=== PATIENT | female | born 1940 | race African-American/Black ===

== ENCOUNTER 2016-09-07 08:51 | Emergency (ER) | payer OTHER ==
[2016-09-07] MEDS ORDERED: KETOROLAC TROMETHAMINE 60 MG/2 ML VIAL IM ONE (09:21)
--- NOTE | 2016-09-07 09:23 | ED Physician Documentation ---
Low Back Pain - HISTORIAN Historian: patient (76 year old female patient presents with lower back pain, concerned she may have a UTI. States she has been lifting her who is in the senior care. ) - HPI Stated Complaint: Back Pain Chief Complaint: Low Back Pain/ Injury Onset: days ago Duration: continues in ED Context: lifting Severity: moderate Worsened By:: nothing Relieved By: nothing Further Comments: yes (76 year old female patient presents with complaint of left lower back pain, states she has been lifting her who is in the senior care. Concerned she may have a UTI.) - ROS CONST: no problems CVS/RESP: none EYES/ENT: none MS/SKIN/LYMPH: none Neuro/Psych: none GI/: denies: abdominal pain - PAST HX Past History: arthritis Other History: diabetes Type 2, hypertension Surgeries/Procedures: cholecystectomy Allergies/Adverse Reactions: Allergies Allergy/AdvReac Type Severity Reaction Status Date / Time Penicillins Allergy Rash Verified 09/07/16 09:03 Home Medications: Ambulatory Orders Medication Instructions Recorded Allopurinol [Allopurinol] 100 mg PO TID 08/23/15 Aspirin [Adult Low Dose Aspirin EC] 81 mg PO QDAY 08/23/15 Atorvastatin Calcium 10 mg PO QDAY 08/23/15 Cholecalciferol [Vitamin D-3] 2,000 unit PO DAILY 08/23/15 Citalopram Hydrobromide 20 mg PO QDAY 08/23/15 [Citalopram HBr] Glimepiride [Glimepiride] 4 mg PO QDAY 08/23/15 Lisinopril [Prinivil] 20 mg PO QDAY 08/23/15 Metoprolol Tartrate [Lopressor] 25 mg PO BID 08/23/15 Ketorolac Tromethamine [Toradol] 10 mg PO TID #15 tablet 09/07/16 - SOCIAL HX Smoking History: non-smoker - FAMILY HX Family History: denies: none - VITAL SIGNS Vital Signs: Vital Signs Temp Pulse Resp BP Pulse Ox 97.1 F L 82 18 178/68 99 09/07/16 08:51 09/07/16 09:32 09/07/16 09:32 09/07/16 09:32 09/07/16 09:32 - REVIEWED ASSESSMENTS Nursing Assessment Reviewed: Yes Vitals Reviewed: Yes ED Results Lab/Radiology - Orders Orders: ED Orders Category Date Time Status UA W/MICRO IF INDICATED Stat Lab 09/07/16 09:01 Ordered Ketorolac Tromethamine [Toradol] Med 09/07/16 09:21 Discontinued 30 mg IM NOW ONE Low Back Pain/Injury - Physical Exam General Appearance: mild distress EENT: eye inspection normal, ROCIO Resp/CVS: chest non-tender, breath sounds nml, heart sounds nml, no resp. distress, lungs clear, reg. rate & rhythm Abdomen: non-tender, no organomegaly, no pulsatile mass Back: painless ROM, other (left lower back with tenderness in para-spinous muscles. ). No: vertebral point-tendernes Straight Leg Raising: Negative Left, Negative Right Neuro/Psych: oriented x3, motor nml, sensation nml, bilat. 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 You may use Tylenol every 4hour as needed for pain. Limit your dose to less than 4 G per day. 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 Home Medications: Ambulatory Orders Allopurinol [Allopurinol] 100 mg PO TID 08/23/15 Aspirin [Adult Low Dose Aspirin EC] 81 mg PO QDAY 08/23/15 Atorvastatin Calcium 10 mg PO QDAY 08/23/15 Cholecalciferol [Vitamin D-3] 2,000 unit PO DAILY 08/23/15 Citalopram Hydrobromide [Citalopram HBr] 20 mg PO QDAY 08/23/15 Glimepiride [Glimepiride] 4 mg PO QDAY 08/23/15 Lisinopril [Prinivil] 20 mg PO QDAY 08/23/15 Metoprolol Tartrate [Lopressor] 25 mg PO BID 08/23/15 Ketorolac Tromethamine [Toradol] 10 mg PO TID #15 tablet 09/07/16 Condition: Stable Disposition: 01 HOME, SELF-CARE Decision to Admit: NO Decision Time: 09:23
[2016-09-07 09:34] VITALS: BP 178/68
[2016-09-08 06:59] LABS: APPEARANCE,URINE CLEAR (CLEAR); COLOR,URINE YELLOW (YELLOW); OCCULT BLOOD,URINE NEGATIVE (NEGATIVE); PH URINE 5.5 (5.0 - 8.0); UROBILINOGEN URINE 0.2 Eu (0.2-1.0)
== END 2016-09-07 09:32 | disposition home or self-care (01) ==
LOC: ED 08:51
DX: M54.5 Low back pain (principal)
CPT/HCPCS: 81002; J1885; 96372; 99283

== ENCOUNTER 2017-09-08 09:38 | Outpatient (CLI) | payer OTHER ==
--- NOTE | 2017-09-08 10:11 | Diagnostic Imaging Report ---
[facility] [address] [facility].[address] 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 KNEE REPLACEMENT 4-5 YEARS AGO. (Hx) / ACUTE PAIN OF RIGHT KNEE (DICOM Hx) / ACUTE PAIN OF RIGHT KNEE (Pt comments) Findings: 3 views of the right knee demonstrates knee prosthesis hardware in place. No fracture. No dislocation. Small joint effusion. No soft tissue irregularity. Impression: Knee prosthesis hardware in place. Small joint effusion. No acute appearing osseous abnormality. Electronically signed on Sep 08, 2017 10:07:32 AM CUSTOMER ACCOUNT SPECIALIST by: Tony LINK
== END 2017-09-08 09:40 ==
LOC: RAD 09:38
PROVIDERS: ATTEND Family Medicine
DX: M25.561 Pain in right knee (principal)
CPT/HCPCS: 73562

== ENCOUNTER 2017-11-12 10:23 | Outpatient (CLI) | payer OTHER ==
[2017-11-12 10:53] LABS: MEAN CORPUSCULAR HEMOGLOBIN 25.1 pg (28.0-34.0)
[2017-11-12 11:20] LABS: eGFR (African) 43; eGFR (Non-African) 36
== END 2017-11-12 10:25 ==
LOC: LAB 10:23
PROVIDERS: ATTEND Family Medicine
DX: E11.29 Type 2 diabetes mellitus with other diabetic kidney complication (principal); R80.9 Proteinuria, unspecified
CPT/HCPCS: 36415; 80053; 80061; 83036; 85027

== ENCOUNTER 2018-03-07 20:35 | Emergency (ER) | payer OTHER ==
--- NOTE | 2018-03-07 21:47 | ED Physician Documentation ---
General Adult - HISTORIAN Historian: patient - HPI Stated Complaint: left low back pain Chief Complaint: General Adult Additional Information: Left low back pain began last evening when she jumped up because her new great grand daughter awoke crying. Has been taking two Aleve twice a day w/o relief. Denies numbness, tingling, loss of bowel/bladder control, paralysis, weakness. Denies urinary frequency, dysuria, abdominal discomfort. No other modifying factors or associated signs. - ROS CONST: denies: fever - PAST HX Past History: other (UTI's) Allergies/Adverse Reactions: Allergies Allergy/AdvReac Type Severity Reaction Status Date / Time Penicillins Allergy Rash Verified 03/07/18 20:48 Home Medications: Ambulatory Orders Medication Instructions Recorded Allopurinol 100 mg PO TID 08/23/15 Aspirin [Adult Low Dose Aspirin EC] 81 mg PO QDAY 08/23/15 Atorvastatin Calcium 10 mg PO QDAY 08/23/15 Cholecalciferol [Vitamin D-3] 2,000 unit PO DAILY 08/23/15 Lisinopril [Prinivil] 20 mg PO QDAY 08/23/15 Metoprolol Tartrate [Lopressor] 25 mg PO BID 08/23/15 Cyclobenzaprine HCl [Flexeril] 10 mg PO HS #7 tablet 03/07/18 Nitrofurantoin Monohyd/M-Cryst 100 mg PO Q12H #14 capsule 03/07/18 [Macrobid 100 mg Capsule] traMADol HCL [Ultram] 50 mg PO Q6H PRN #10 tablet 03/07/18 - SOCIAL HX Smoking History: non-smoker - FAMILY HX Family History: No - VITAL SIGNS Vital Signs: Vital Signs Temp Pulse Resp BP Pulse Ox 98.1 F 78 18 208/64 98 03/07/18 20:35 03/07/18 20:35 03/07/18 20:35 03/07/18 20:35 03/07/18 20:35 - REVIEWED ASSESSMENTS Nursing Assessment Reviewed: Yes Vitals Reviewed: Yes ED Results Lab/Radiology - Orders Orders: ED Orders Category Date Time Status UA [URINALYSIS] Routine Lab 03/07/18 Ordered Cyclobenzaprine HCl [Flexeril] Med 03/07/18 21:41 Once 10 mg PO NOW ONE Nitrofurantoin Monohyd/M-Cryst [Macrobid] Med 03/07/18 21:41 Once 100 mg PO NOW ONE traMADol HCL [Ultram] Med 03/07/18 21:41 Once 50 mg PO NOW ONE General Adult Physical Exam - PHYSICAL EXAM GENERAL APPEARANCE: mild distress (anxious) EENT: eye inspection normal, ENT inspection normal NECK: normal inspection, supple RESPIRATORY: no resp distress, breath sounds normal CVS: reg rate & rhythm, heart sounds normal ABDOMEN: soft, normal bowel sounds, no distension, non-tender BACK: normal inspection, no CVA tenderness, other (no vertebral tenderness, ) SKIN: warm/dry, normal color EXTREMITIES: no evidence of injury NEURO: CN's nml as tested, motor nml, sensation nml, cognition normal Discharge Clincal Impression: Lumbar strain Qualifiers: Encounter type: initial encounter Qualified Code(s): S39.012A - Strain of muscle, fascia and tendon of lower back, initial encounter Urinary tract infection Qualifiers: Urinary tract infection type: acute cystitis Hematuria presence: without hematuria Qualified Code(s): N30.00 - Acute cystitis without hematuria Prescriptions: Cyclobenzaprine HCl [Flexeril] 10 mg PO HS #7 tablet Nitrofurantoin Monohyd/M-Cryst [Macrobid 100 mg Capsule] 100 mg PO Q12H #14 capsule traMADol HCL [Ultram] 50 mg PO Q6H PRN #10 tablet PRN Reason: Pain Referrals: Baljit Andersen MD [Primary Care Provider] - 2 Days Additional Instructions: Drink more water. Your antibiotic and muscle relaxant prescriptions are at [facility]. Continue to take Aleve as you have been. You can also take 1000 mg of Tylenol every 8 hours if needed for discomfort. Ice or gentle heat to the sore area of your back for 30 minutes of each hour you are awake followed by motion and gentle stretching. Follow up with your provider as needed. Return to the ER if your condition worsens. Condition: Good Disposition: 01 HOME, SELF-CARE Decision to Admit: NO Decision Time: 22:20
[2018-03-07] MEDS: NITROFURANTOIN 100 MG CAPSULE PO ONE (22:11)
[2018-03-07] MEDS: traMADol HCL 50 MG TABLET PO ONE (22:15)
[2018-03-07] MEDS: CYCLOBENZAPRINE HCL 5 MG TABLET PO ONE (22:15)
[2018-03-07 22:23] VITALS: BP 193/71
[2018-03-08 07:27] LABS: COLOR,URINE YELLOW (YELLOW)
[2018-03-08 07:28] LABS: APPEARANCE,URINE CLOUDY (CLEAR); OCCULT BLOOD,URINE NEGATIVE (NEGATIVE); PH URINE 5.5 (5.0 - 8.0); UROBILINOGEN URINE 0.2 Eu (0.2-1.0)
== END 2018-03-07 22:24 | disposition home or self-care (01) ==
LOC: ED 20:35
DX: S39.012A Strain of muscle, fascia and tendon of lower back, initial encounter (principal); N30.00 Acute cystitis without hematuria; X58.XXXA Exposure to other specified factors, initial encounter; Y92.9 Unspecified place or not applicable; Y93.9 Activity, unspecified; Y99.9 Unspecified external cause status
CPT/HCPCS: 81002; 87086

== ENCOUNTER 2018-04-17 18:14 | Emergency (ER) | payer OTHER ==
--- NOTE | 2018-04-17 18:35 | ED Physician Documentation ---
General Adult - HISTORIAN Historian: patient - HPI Stated Complaint: R knee pain, malaise Chief Complaint: General Adult Timing: still present Severity: moderate Further Comments: yes (Pt is a 77 yo female with R knee pain who presents with BP 209/92. Pt states she "just doesn't feel well." Knee pain has been going on for 1 year. She had b/l knee replacement surgery. She fell about a year ago and her L knee has been bothering her since. Pt states that her 4 months ago and she is living alone. Pt takes Lisinopril and Metoprolol for bp, but has not taken it yet today.) - ROS CONST: other (malaise) EYES/ENT: none CVS/RESP: none GI/: none MS/SKIN/LYMPH: other (L knee pain) - PAST HX Past History: hypertension, other (GERD, HLD, Gout) Surgeries/Procedures: cholecystectomy, hysterectomy, other (ortho surgery) Allergies/Adverse Reactions: Allergies Allergy/AdvReac Type Severity Reaction Status Date / Time Penicillins Allergy Rash Verified 04/17/18 18:41 Home Medications: Ambulatory Orders Medication Instructions Recorded Allopurinol 100 mg PO TID 08/23/15 Aspirin [Adult Low Dose Aspirin EC] 81 mg PO QDAY 08/23/15 Atorvastatin Calcium 10 mg PO QDAY 08/23/15 Cholecalciferol [Vitamin D-3] 2,000 unit PO DAILY 08/23/15 Lisinopril [Prinivil] 20 mg PO QDAY 08/23/15 Metoprolol Tartrate [Lopressor] 25 mg PO BID 08/23/15 Cyclobenzaprine HCl [Flexeril] 10 mg PO HS #7 tablet 03/07/18 - SOCIAL HX Smoking History: non-smoker - FAMILY HX Family History: No - VITAL SIGNS Vital Signs: Vital Signs Temp Pulse Resp BP Pulse Ox 193/71 03/07/18 22:21 - REVIEWED ASSESSMENTS Nursing Assessment Reviewed: Yes Vitals Reviewed: Yes Progress - Progress Progress: Lisinopril 20 mg po Metoprolol 50 mg po Hydralazine 25 mg po improved u/a 1+ leukoesterase Levaquin 500 mg po in ER Pt drove by herself to ER, [place] (5/325) 2 tablets --> home, 1 po q 6 h. Rx Levaquin 250 mg. Take one by mouth once daily for 7 days. Rx [place] (5/325). Take one every 4 to 6 hours as needed for moderate to severe pain. Follow up with primary provider next week for re-check of blood pressure. General Adult Physical Exam - PHYSICAL EXAM GENERAL APPEARANCE: moderate distress (anxious) EENT: pharynx normal NECK: normal inspection, supple RESPIRATORY: no resp distress, chest non-tender, breath sounds normal CVS: reg rate & rhythm, heart sounds normal ABDOMEN: soft, no organomegaly, normal bowel sounds BACK: normal inspection, no CVA tenderness SKIN: warm/dry, normal color EXTREMITIES: other (L knee, FROM, no effusion or erythema) NEURO: oriented X3, motor nml, sensation nml Discharge Clincal Impression: R knee pain Urinary tract infection Qualifiers: Urinary tract infection type: site unspecified Hematuria presence: without hematuria Qualified Code(s): N39.0 - Urinary tract infection, site not specified Hypertension Qualifiers: Hypertension type: unspecified Qualified Code(s): I10 - Essential (primary) hypertension Referrals: Baljit Andersen MD [Primary Care Provider] - Condition: Stable Disposition: 01 HOME, SELF-CARE Decision to Admit: NO Decision Time: 23:00
[2018-04-17] MEDS ORDERED: METOPROLOL TARTRATE 50 MG TABLET PO ONE (18:49)
[2018-04-17] MEDS ORDERED: LISINOPRIL 20 MG TABLET PO ONE (19:47)
--- NOTE | 2018-04-17 19:51 | Diagnostic Imaging Report ---
SHRUTHI WARE [facility] [address] [facility], [facility] [address] Report Submission Date: Apr 17, 2018 7:17:43 PM CDT Patient Study Name: ARTURO CRAIG Date: Apr 17, 2018 6:46:35 PM CDT Modality Type: DX Gender: F Description: LOWER EXTREMITY : 42 Institution: [facility] Physician: SHRUTHI WARE Right knee 3 views Clinical history: History of fall There is total right knee prosthesis, components appear to be in good position. No acute fractures, dislocation and there is no joint effusion. No signs of loosening of the prosthesis. Impression: Total right knee prosthesis in good position Electronically signed on Apr 17, 2018 7:17:43 PM CDT by: Casper LINK
[2018-04-17] MEDS ORDERED: HYDRALAZINE HCL 25 MG TABLET PO STA ×2 (20:40→21:24)
[2018-04-17 21:51] LABS: BASO % 1.1 % (0.0-1.5); EOS % 2.7 % (0.0-6.8); LYMPH ABS # 1.95 thou/uL (0.60-4.00); MCH. 24.8 pg (28.0-34.0); MCV 79.4 fL (80.0-100.0); MONOCYTE % 3.8 % (0.0-11.0); MONOCYTE ABS # 0.31 thou/uL (0.00-0.90); PLATELET COUNT 289 thou/uL (130-400)
[2018-04-17] MEDS ORDERED: LEVOFLOXACIN 500 MG TABLET PO ONE (22:58)
[2018-04-17] MEDS ORDERED: HYDROcodone /APAP 5/325 1 EACH TABLET PO ONE (23:04)
[2018-04-17 23:47] VITALS: BP 185/85
[2018-04-18 06:43] LABS: APPEARANCE,URINE CLEAR (CLEAR); COLOR,URINE YELLOW (YELLOW); OCCULT BLOOD,URINE TRACE-INTACT (NEGATIVE); UROBILINOGEN URINE 0.2 Eu (0.2-1.0)
== END 2018-04-17 23:00 | disposition home or self-care (01) ==
LOC: ED 18:14
DX: M25.561 Pain in right knee (principal); N39.0 Urinary tract infection, site not specified; I10 Essential (primary) hypertension
CPT/HCPCS: 73562; 80053; 81002; 85025; 87086; S1016

== ENCOUNTER 2018-10-23 19:45 | Inpatient (IN) | payer OTHER ==
[2018-10-23] MEDS ORDERED: hydrALAZINE HCL 20 MG/1 ML IVP ONE ×2 (19:47→20:52)
--- NOTE | 2018-10-23 20:44 | ED Physician Documentation ---
Dyspnea - HISTORIAN Historian: patient - HPI Stated Complaint: SOA Chief Complaint: Dyspnea Additional Information: Patient is a 78-year-old female who presents to the ER with c/o shortness of breath that started 2-3 days ago. She is hypertensive-states that she has been taking her blood pressure medication as directed. She feels like she cannot catch her breath with exertion. She is concerned because she lives alone and she feels that she can't breathe. She states that she has had a decrease in oral intake because she gets short of breath when she chews. Onset: days ago (2-3 days) Duration: continues in ED Initiating Event: other (unsure) Severity: mild Exacerbated By: exertion, laying flat, coughing Associated Symptoms: denies: chills, fever, chest pain Further Comments: no - ROS CONST: weakness EYES/ENT: none GI/: nausea NEURO/PSYCH: denies: headache MS/SKIN/LYMPH: none - PAST HX Lung Disease: none Cardiac Disease: CHF, other (GERD, Gout) PE Risk Factors: hypertension Surgeries/Procedures: cholecystectomy, hysterectomy, other (Bilateral knee replacements) Other History: none Immunizations: UTD Allergies/Adverse Reactions: Allergies Allergy/AdvReac Type Severity Reaction Status Date / Time Penicillins Allergy Rash Verified 04/17/18 18:41 Home Medications: Ambulatory Orders Medication Instructions Recorded Allopurinol 100 mg PO TID 08/23/15 Aspirin [Adult Low Dose Aspirin EC] 81 mg PO QDAY 08/23/15 Atorvastatin Calcium 10 mg PO QDAY 08/23/15 Lisinopril [Prinivil] 20 mg PO QDAY 08/23/15 Metoprolol Tartrate [Lopressor] 25 mg PO BID 08/23/15 Mirtazapine 15 mg PO DAILY 10/23/18 Omeprazole 40 mg PO DAILY 10/23/18 - SOCIAL HX Smoking History: non-smoker Alcohol Use: none Drug Use: none - FAMILY HX Family History: none - VITAL SIGNS Vital Signs: Vital Signs Temp Pulse Resp BP Pulse Ox 97.5 F L 88 22 215/114 98 10/23/18 19:48 10/23/18 19:48 10/23/18 19:48 10/23/18 19:48 10/23/18 19:48 Progress - Progress Progress: 21:00 patient ambulated approx. 50 ft to the bathroom- she became very short of breath- dyspneic >35- however her oxygen saturation is > 95%- but patients overall appearance is moderate distress. 21:30 patient showing CHF on xray- we will admit patient and slowly hydrate with IVF and diurese. Her BUN/Cr are elevated so we will monitor hydration very closely. We will give IV lasix and monitor strict I & O's, will monitor resp. status, and closely watch for fluid overload. IVF will only go at 75 ml/hr. ED Results Lab/Radiology - Radiology Radiology Impressions: Chest two views History: Shortness of breath Findings: Pulmonary edema, cardiomegaly, trace pleural effusions, and pulmonary vascular congestion are observed. Cholecystectomy clips are present. Impression: Congestive heart failure. Electronically signed on Oct 23, 2018 9:22:42 PM CDT by: Kevin Cerda - Orders Orders: ED Orders Category Date Time Status Continuous EKG monitoring Q30M Care 10/23/18 19:48 Active Continuous Pulse Oximetry Q30M Care 10/23/18 19:[address] IV Lock 1T Care 10/23/18 19:48 Active CHEST 2VIEW [RAD] Stat Exams 10/23/18 Ordered CBC/PLATELET/DIFF Routine Lab 10/23/18 19:48 Ordered CMP Routine Lab 10/23/18 19:48 Ordered TROPONIN I (cTnI) Stat Lab 10/23/18 19:48 Ordered hydrALAZINE HCL [Apresoline] Med 10/23/18 19:47 Discontinued 10 mg IVP NOW ONE EKG WITH COMPARISON Stat Ther 10/23/18 19:48 Ordered Dyspnea Physical Exam - EXAM General Appearance: alert, mild distress EENT: eye inspection normal, ENT inspection normal, pharynx normal, ROCIO Neck: nml inspection Respiratory: speaks full sentences, decreased air movement (left lower lobe), rhonchi (right lower lobe) CVS: reg. rate & rhythm, pulses equal Abdomen: non-tender Skin: color nml, warm, dry Extremities: non-tender, normal range of motion, no edema Neuro/Psych: oriented x3, CN's nml as tested, motor nml, sensation nml Discharge Clincal Impression: Hypertension, CHF (congestive heart failure), Acute renal failure Condition: Stable Decision to Admit: [id number] Date of Decison to Admit: 10/23/18 Decision Time: 21:50
[2018-10-23 20:50] LABS: MEAN CORPUSCULAR HEMOGLOBIN 25.4 pg (28.0-34.0)
[2018-10-23 20:51] LABS: BASOPHILS % 0.7 (0.0-1.5); EOSINOPHILS % 3.5 % (0.0-6.8); NEUTROPHILS # 4.8 # k/uL (1.4-7.7)
[2018-10-23] MEDS ORDERED: LISINOPRIL 5 MG TABLET PO ONE (20:52)
[2018-10-23] MEDS ORDERED: FUROSEMIDE 40 MG/4 ML VIAL IVP ONE (21:44)
[2018-10-23] MEDS ORDERED: 0.9 % SODIUM CHLORIDE 1,000 ML IV ONE (21:48)
[2018-10-23] MEDS: 0.9 % SODIUM CHLORIDE 1,000 ML IV SCH (22:04)
[2018-10-23 22:48] VITALS: BMI 22.8
--- NOTE | 2018-10-24 05:44 | Diagnostic Imaging Report ---
BARRERA ELLIS [facility] [address] [facility] [address] [address] Report Submission Date: Oct 23, 2018 9:22:42 PM CDT Patient Study Name: ARTURO CRAIG Date: Oct 23, 2018 8:34:39 PM CDT Modality Type: DX Gender: F Description: CHEST 2VIEW : 42 Institution: [facility] Physician: BARRERA ELLIS Chest two views History: Shortness of breath Findings: Pulmonary edema, cardiomegaly, trace pleural effusions, and pulmonary vascular congestion are observed. Cholecystectomy clips are present. Impression: Congestive heart failure. Electronically signed on Oct 23, 2018 9:22:42 PM CDT by: Kevin LINK
[2018-10-24] MEDS ORDERED: LABETALOL HCL 20 MG/4 ML SYRINGE IV ONE ×4 (06:03→16:54)
[2018-10-24] MEDS: PANTOPRAZOLE SODIUM 40 MG TABLET.DR PO SCH (06:30)
[2018-10-24] MEDS ORDERED: PANTOPRAZOLE SODIUM 40 MG TABLET.DR ONE (06:34)
--- NOTE | 2018-10-24 06:44 | History and Physical Report ---
History of Present Illnes - History of Present Illness Reason for Visit: Congestive Heart Failure/Hypertension History of Present Illness: Patient is a 78-year-old female who presented to the ER with c/o shortness of breath that started 2-3 days ago. She was hypertensive in the ER requiring 2 doses of Hydralazine 10 mg and PO lisinopril. Patient states that she has been taking her blood pressure medication as directed. She was short of breath in the ER with minimal exertion. She lives alone and is unable to complete basic ADLs due to shortness of breath. Her oral intake has been very minimal due to dyspnea with chewing. She appears dehydrated and symptoms of CHF. IV lasix 40 mg was given in the ER and patient has had 1 liter out in urine. She feels that she is not as short of breath. She received 20 mg of Labetolol this morning due to Hypertension > 180/90- blood pressure came down to 140s systolic after IV medication. We will continue to monitor patient closely. - Past Medical History Cardiac: CHF, HTN Gastrointestinal: GERD Rheumatologic: Gout Renal/: Chronic renal insuff - Past Surgical History Past Surgical History: Cholecystectomy, Hysterectomy, Other (bilateral total knee replacement) - Past Family History Mother Family History: Father Family History: - Past Social History Smoke: No ( was a smoker) Alcohol: None Drugs: None Lives: Alone Domestic Violence: Negative - Health Maintenance Health Maintenance: Influenza Vaccine, Pneumococcal Vaccine Influenza Vaccine: Current for this Influenza Season Pneumonia Vaccine: Yes Resuscitation Status: Resusciation Status Resuscitation Status Do Not Resuscitate - Unable to Obtain History Unable to Obtain: No Review of Systems - Review of Systems Constitutional: Weakness Eyes: negative: conjunctivae inflammation, eyelid inflammation ENT: negative: Ear Pain, Nose Pain, Throat Pain Respiratory: Cough, Shortness of Breath, SOB with Excertion Cardiovascular: Paroxysmal Noc. Dyspnea, Light Headedness. negative: Chest Pain Gastrointestinal: negative: Nausea, Vomiting, Abdominal Pain Genitourinary: negative: Dysuria Musculoskeletal: negative: Back Pain Skin: negative: Rash Neurological: Weakness - Medications/Allergies Allergies/Adverse Reactions: Allergies Allergy/AdvReac Type Severity Reaction Status Date / Time Penicillins Allergy Rash Verified 04/17/18 18:41 Home Medications: Home Medications Mirtazapine 15 mg PO DAILY 10/23/18 Omeprazole 40 mg PO DAILY 10/23/18 Current Inpatient Medications: Current Inpatient Medications Atorvastatin Calcium (Lipitor) 10 mg PO QDAY [facility] Enoxaparin Sodium (Lovenox) 40 mg SQ DAILY [facility] Stop: 11/07/18 08:59 Furosemide (Lasix) 20 mg IVP QD [facility] Sodium Chloride (Normal Saline) 1,000 mls @ 70 mls/hr IV Q10H [facility] Last Admin: 10/23/18 22:04 Dose: 70 mls/hr Labetalol HCl (Trandate Inj) 20 mg IV NOW ONE Stop: 10/24/18 06:11 Last Admin: 10/24/18 06:12 Dose: 20 mg Lisinopril (Prinivil) 20 mg PO QDAY [facility] Metoprolol Tartrate (Lopressor) 25 mg PO BID [facility] Mirtazapine (Remeron) 15 mg PO DAILY [facility] Pantoprazole Sodium (Protonix) 40 mg PO 0700 [facility] Spironolactone (Aldactone) 25 mg PO DAILY [facility] Exam - Exam Vital Signs: Vital Signs (72 hours) 10/23/18 10/23/18 10/23/18 19:48 20:18 20:30 Temperature 97.5 F L Pulse Rate 88 88 88 Pulse Rate [ 88 Right Pulse ox] Pulse Rate [ Right] Respiratory 22 Rate Blood Pressure 215/114 [Left Arm] Blood Pressure 211/120 [Right Arm] O2 Sat by Pulse 97 98 97 Oximetry 10/23/18 10/23/18 10/23/18 20:48 20:50 21:00 Temperature Pulse Rate 89 Pulse Rate [ 88 88 Right Pulse ox] Pulse Rate [ Right] Respiratory 22 20 Rate Blood Pressure [Left Arm] Blood Pressure 208/98 196/121 [Right Arm] O2 Sat by Pulse 97 98 97 Oximetry 10/23/18 10/23/18 10/23/18 21:18 21:30 21:53 Temperature Pulse Rate 88 95 H Pulse Rate [ 89 Right Pulse ox] Pulse Rate [ Right] Respiratory 36 H Rate Blood Pressure [Left Arm] Blood Pressure 222/89 [Right Arm] O2 Sat by Pulse 97 98 99 Oximetry 10/23/18 10/23/18 10/23/18 22:00 22:10 22:15 Temperature 97.5 F L 97.5 F L Pulse Rate 87 Pulse Rate [ 89 Right Pulse ox] Pulse Rate [ 88 93 H Right] Respiratory 24 20 Rate Blood Pressure [Left Arm] Blood Pressure 190/73 143/66 [Right Arm] O2 Sat by Pulse 98 99 Oximetry 10/23/18 10/23/18 10/23/18 22:30 22:43 23:00 Temperature 97.5 F L Pulse Rate 87 Pulse Rate [ 99 H Right Pulse ox] Pulse Rate [ 93 H Right] Respiratory 20 Rate Blood Pressure [Left Arm] Blood Pressure 143/66 [Right Arm] O2 Sat by Pulse 99 99 97 Oximetry 10/23/18 10/24/18 10/24/18 23:30 00:00 00:30 Temperature Pulse Rate 94 H 93 H 83 Pulse Rate [ Right Pulse ox] Pulse Rate [ Right] Respiratory Rate Blood Pressure [Left Arm] Blood Pressure [Right Arm] O2 Sat by Pulse 98 98 96 Oximetry 10/24/18 10/24/18 10/24/18 01:00 01:18 01:30 Temperature 97.8 F Pulse Rate 92 H 92 H Pulse Rate [ Right Pulse ox] Pulse Rate [ 96 H Right] Respiratory 16 Rate Blood Pressure [Left Arm] Blood Pressure 130/76 [Right Arm] O2 Sat by Pulse 97 97 96 Oximetry 10/24/18 10/24/18 10/24/18 02:00 02:43 03:00 Temperature 97.9 F Pulse Rate 88 88 Pulse Rate [ 99 H Right Pulse ox] Pulse Rate [ 94 H Right] Respiratory 16 Rate Blood Pressure 215/114 [Left Arm] Blood Pressure 174/90 [Right Arm] O2 Sat by Pulse 98 96 96 Oximetry 10/24/18 10/24/18 10/24/18 03:30 04:00 04:30 Temperature Pulse Rate 78 78 84 Pulse Rate [ Right Pulse ox] Pulse Rate [ Right] Respiratory Rate Blood Pressure [Left Arm] Blood Pressure [Right Arm] O2 Sat by Pulse 97 96 95 Oximetry 10/24/18 10/24/18 05:00 05:35 Temperature 97.9 F Pulse Rate 63 Pulse Rate [ Right Pulse ox] Pulse Rate [ 94 H Right] Respiratory 16 Rate Blood Pressure [Left Arm] Blood Pressure 174/90 [Right Arm] O2 Sat by Pulse 99 96 Oximetry General: Alert, Oriented to Person, Oriented to Place, Oriented to Time, Cooperative, Moderate distress (with exertion) HEENT: PERRLA, EOMI Neck: Normal Range of Motion Carotids: No bruit Lungs: Respiratory Distress (with exertion- tachypnea >30), Rales (bases), Decreased Air Movement (in the bases with crackles) Cardiovascular: Normal S1, Normal S2 Abdomen: Normal bowel sounds, Soft, No tenderness Integumentary: Normal, Jennings, Warm, Dry Extremities: No edema, Normal pulses, No tenderness/swelling Neurological: Normal gait, Normal speech, Strength Equal Bilat, Sensation intact Psych/Mental Status: Mental status NL, Mood NL, Appropriate Affect, Intact Judgment - Laboratory Results Laboratory Results: Laboratory Results 10/23/18 10/23/18 10/23/18 20:40 20:40 20:40 WBC 7.30 RBC 4.57 Hgb 11.6 L Hct 36.4 MCV 80.0 MCH 25.4 L MCHC 31.9 RDW 18.3 H Plt Count 291 Neut % (Auto) 64.8 Lymph % (Auto) 27.0 Hill % (Auto) 4.0 Eos % (Auto) 3.5 Baso % (Auto) 0.7 Neut # (Auto) 4.8 Lymph # (Auto) 2.0 Hill # (Auto) 0.3 Eos # (Auto) 0.3 Baso # (Auto) 0.1 Sodium 140 Potassium 4.3 Chloride 111 H Carbon Dioxide 20 L BUN 30 H Creatinine 1.73 H Estimated Creat Clear 60 Est GFR ( Amer) 37 L Est GFR (Non-Af Amer) 30 L Glucose 105 Calcium 8.9 Total Bilirubin 0.6 AST 52 H ALT 22 Alkaline Phosphatase 132 H Troponin I < 0.03 L Total Protein 6.4 Albumin 3.6 Assessment/Plan - Assessment/Plan (1) Hypertension Status: Acute Current Visit: Yes Qualifiers: Hypertension type: essential hypertension Qualified Code(s): I10 - Essential (primary) hypertension Assessment: Blood pressures have been elevated- she received oral lisinopril, 2 doses of IV Hydralazine 10mg and one dose this morning of Labetolol 20mg with success Plan: will continue with home blood pressure medications (2) CHF (congestive heart failure) Status: Acute Current Visit: Yes Qualifiers: Heart failure chronicity: unspecified Assessment: Dyspnea on exertion- tachypnea > 30, CHF on xray, blood pressure > 180/90s, dec reased oral intake, decreased activity, crackles in the bases Plan: Will continue with IV lasix and slow IV hydration due to dehydration. We will monitor heart failure closely. Will keep patient on telemetry, monitor blood pressure, SAO2, and monitor signs of peripheral edema or increasing shortness of breath (3) Acute renal failure Status: Acute Current Visit: Yes Qualifiers: Acute renal failure type: unspecified Qualified Code(s): N17.9 - Acute kidney failure, unspecified Assessment: Mucous membranes were dry, minimal urinary output, elevated BUN/Cr, decreased oral intake, poor skin turgor Plan: Will hydrate slowly with IVF at 75 cc/hr and low dose diuretic of 20mg IV daily- pt received 40 mg IV in ER VTE Assessment - RISK FACTOR SCORE VTE RISK FACTOR SCORES: AGE OVER 60 YEARS, CONGESTIVE HEART FAILURE OR MYOCARDIAL INFARCTION - RISK VTE MODERATE RISK: SCORE OF 2 (RISK PROXIMAL DVT 2-4%) PROPHYAXIS NEEDED (Will start lovenox daily, ambulation, incentive spirometry)
[2018-10-24] MEDS ORDERED: LISINOPRIL 10 MG TABLET PO ONE ×2 (08:07→21:32)
[2018-10-24] MEDS ORDERED: ATORVASTATIN CALCIUM 20 MG TABLET PO ONE (08:07)
[2018-10-24] MEDS ORDERED: ENOXAPARIN SODIUM 30 MG/0.3 ML DISP.SYRIN SQ ONE (08:07)
[2018-10-24] MEDS ORDERED: METOPROLOL TARTRATE 25 MG TABLET ONE ×2 (08:07→21:32)
[2018-10-24] MEDS ORDERED: SPIRONOLACTONE 25 MG TABLET PO ONE (08:07)
[2018-10-24] MEDS ORDERED: MIRTAZAPINE 15 MG TABLET PO ONE (08:07)
[2018-10-24] MEDS ORDERED: FUROSEMIDE 20 MG/2 ML VIAL ONE ×2 (08:08→21:32)
[2018-10-24] MEDS: SPIRONOLACTONE 25 MG TABLET PO SCH (08:13)
[2018-10-24] MEDS: FUROSEMIDE 20 MG/2 ML VIAL IVP SCH ×2 (08:13→21:39)
[2018-10-24] MEDS: ENOXAPARIN SODIUM 40 MG/0.4 ML DISP.SYRIN SQ SCH (08:14)
[2018-10-24] MEDS: ATORVASTATIN CALCIUM 10 MG TABLET PO SCH (08:14)
[2018-10-24] MEDS: METOPROLOL TARTRATE 25 MG TABLET PO SCH ×2 (08:14→21:40)
[2018-10-24] MEDS: MIRTAZAPINE 15 MG TABLET PO SCH (08:15)
[2018-10-24] MEDS ORDERED: ENOXAPARIN SODIUM 40 MG/0.4 ML DISP.SYRIN SQ ONE (08:18)
[2018-10-24] MEDS ORDERED: FUROSEMIDE 20 MG/2 ML VIAL IVP SCH (09:00)
[2018-10-24] MEDS ORDERED: LISINOPRIL 10 MG TABLET PO SCH (09:00)
[2018-10-24] MEDS: 0.9 % SODIUM CHLORIDE 1,000 ML IV SCH ×3 (09:41→22:05)
[2018-10-24] MEDS ORDERED: 0.9 % SODIUM CHLORIDE 1,000 ML IV ONE ×2 (10:10→21:31)
[2018-10-24] MEDS: LISINOPRIL 10 MG TABLET PO SCH (21:40)
[2018-10-25] MEDS: 0.9 % SODIUM CHLORIDE 1,000 ML IV SCH (01:10)
--- NOTE | 2018-10-25 04:37 | Discharge Summary ---
Discharge Summary - Discharge [facility] Admission Date: 10/23/18 Discharge Date: 10/25/18 History of Present Illness: Patient is a 78-year-old female who presented to the ER with c/o shortness of breath that started 2-3 days ago. She was hypertensive in the ER requiring 2 doses of Hydralazine 10 mg and PO lisinopril. Patient states that she has been taking her blood pressure medication as directed. She was short of breath in the ER with minimal exertion. She lives alone and is unable to complete basic ADLs due to shortness of breath. Her oral intake has been very minimal due to dyspnea with chewing. She appears dehydrated and symptoms of CHF. IV lasix 40 mg was given in the ER and patient has had 1 liter out in urine. She feels that she is not as short of breath. She received 20 mg of Labetolol this morning due to Hypertension > 180/90- blood pressure came down to 140s systolic after IV medication. We will continue to monitor patient closely. Condition at Discharge: Stable Home Medications: Ambulatory Orders Medication Instructions Recorded Allopurinol 100 mg PO TID 08/23/15 Aspirin [Adult Low Dose Aspirin EC] 81 mg PO QDAY 08/23/15 Atorvastatin Calcium 10 mg PO QDAY 08/23/15 Lisinopril [Prinivil] 20 mg PO QDAY 08/23/15 Metoprolol Tartrate [Lopressor] 25 mg PO BID 08/23/15 Mirtazapine 15 mg PO DAILY 10/23/18 Omeprazole 40 mg PO DAILY 10/23/18 Furosemide [Lasix] 40 mg PO DAILY #30 tablet 10/25/18 Lisinopril 20 mg PO BID #60 tablet 10/25/18 Spironolactone [Aldactone] 25 mg PO DAILY #30 tablet 10/25/18 Consultations this Visit: None Procedures this Visit: None Allergies/Adverse Reactions: Allergies Allergy/AdvReac Type Severity Reaction Status Date / Time Penicillins Allergy Rash Verified 04/17/18 18:41 Discharge Summary: Patient is a 78-year-old female who was admitted for CHF, RF, and Hypertension. She received several doses of IV hypertensive medications, her lisinopril was increased, added lasix and spironalactone to her home regimen. She is feeling much better and feels ready to go home. She will follow up with her PCP next week- will increase Lisinopril from 20mg daily to 20 mg BID. Hospital Course: IV hypertension, IV slow hydration, IV diuresis, incorporating oral hypertensives - Final Diagnosis (1) Acute renal failure Problems: Improved with slow IV hydration Right or Left: Right (2) CHF (congestive heart failure) Problems: Improved- patient breathing much better- added lasix and spironalactone to her home meds Right or Left: Right (3) Hypertension Problems: stable- increased lisinopril to 20 mg BID Right or Left: Right
[2018-10-25] MEDS ORDERED: PANTOPRAZOLE SODIUM 40 MG TABLET.DR ONE (05:48)
[2018-10-25] MEDS: PANTOPRAZOLE SODIUM 40 MG TABLET.DR PO SCH (05:50)
--- NOTE | 2018-10-25 07:09 | Diagnostic Imaging Report ---
BARRERA ELLIS [facility] [address] [facility] [address] [address] Report Submission Date: Oct 25, 2018 7:02:43 AM CDT Patient Study Name: ARTURO CRAIG Date: Oct 25, 2018 6:26:53 AM CDT Modality Type: DX Gender: F Description: CHEST 2VIEW : 42 Institution: [facility] Physician: BARRERA ELLIS PA and lateral chest History: Follow-up congestive heart failure The heart is enlarged, unchanged. There is mild pulmonary venous congestion with small bilateral pleural effusions, unchanged. There is no confluent infiltrate. There has been a cholecystectomy. Impression: Cardiomegaly with mild pulmonary venous congestion and small bilateral pleural effusions, unchanged. Electronically signed on Oct 25, 2018 7:02:43 AM CDT by: Carlie LINK
[2018-10-25] MEDS ORDERED: SPIRONOLACTONE 25 MG TABLET PO ONE (08:35)
[2018-10-25] MEDS ORDERED: ENOXAPARIN SODIUM 40 MG/0.4 ML DISP.SYRIN SQ ONE (08:35)
[2018-10-25] MEDS ORDERED: ATORVASTATIN CALCIUM 10 MG TABLET PO ONE (08:36)
[2018-10-25] MEDS ORDERED: MIRTAZAPINE 15 MG TABLET PO ONE (08:38)
[2018-10-25] MEDS ORDERED: ATORVASTATIN CALCIUM 20 MG TABLET PO ONE (08:38)
[2018-10-25] MEDS ORDERED: METOPROLOL TARTRATE 25 MG TABLET ONE (08:38)
[2018-10-25] MEDS: FUROSEMIDE 20 MG/2 ML VIAL IVP SCH (08:46)
[2018-10-25] MEDS: SPIRONOLACTONE 25 MG TABLET PO SCH (08:46)
[2018-10-25] MEDS: ATORVASTATIN CALCIUM 10 MG TABLET PO SCH (08:47)
[2018-10-25] MEDS: ENOXAPARIN SODIUM 40 MG/0.4 ML DISP.SYRIN SQ SCH (08:47)
[2018-10-25] MEDS: METOPROLOL TARTRATE 25 MG TABLET PO SCH (08:47)
[2018-10-25] MEDS: LISINOPRIL 10 MG TABLET PO SCH (08:48)
[2018-10-25] MEDS: MIRTAZAPINE 15 MG TABLET PO SCH (08:48)
[2018-10-25 09:02] VITALS: BP 181/93
== END 2018-10-25 09:00 | disposition home or self-care (01) | DRG 292 ==
LOC: ED 19:45 → SOUTH 21:50
PROVIDERS: ADMIT Nurse Practitioner Family; ATTEND Family Medicine
DX: I50.9 Heart failure, unspecified (principal); N17.9 Acute kidney failure, unspecified; I16.0 Hypertensive urgency; I10 Essential (primary) hypertension
CPT/HCPCS: 71046; 80053; 83880; 84484; 85025; 93005; J0360; J1650; J1940; J7030; 96374; 96375; 99222; 99238; 99284; S1016

== ENCOUNTER 2018-12-18 16:21 | Outpatient (CLI) | payer OTHER | END 2018-12-18 16:22 | LOC: LAB 16:21 | PROVIDERS: ATTEND Internal Medicine | DX: I50.22 Chronic systolic (congestive) heart failure (principal) | CPT/HCPCS: 36415; 80048 ==

== ENCOUNTER 2019-01-12 10:53 | Outpatient (CLI) | payer OTHER ==
[2019-01-20 08:03] LABS: eGFR (Non-African) 21
== END 2019-01-12 10:58 | disposition home or self-care (01) ==
LOC: LAB 10:53
PROVIDERS: ATTEND Internal Medicine
DX: I50.22 Chronic systolic (congestive) heart failure (principal)
CPT/HCPCS: 36415; 80048

== ENCOUNTER 2019-05-13 00:13 | Emergency (ER) | payer OTHER ==
--- NOTE | 2019-05-13 00:20 | ED Physician Documentation ---
Abdominal Pain - HISTORIAN Historian: patient - HPI Stated Complaint: she feels "full of stool" Chief Complaint: Abdominal Pain Onset: hours (2) Duration: constant Timing: still present Context: other (she states she is constipated ). denies: out of country travel, bad food, recent trauma Severity: mild Quality: fullness Associated Symptoms: none, neck pain Relieved by: nothing Further Comments: yes (She states lower abdomen "pain but more feeling full" she reports she did try a "few sips" of mag citrate earlier with no results she did digitally check herself and felt stool. She has no pain rather fullness.) - ROS CONST: no problems - SOCIAL HX Smoking History: non-smoker Alcohol Use: none Drug Use: none - FAMILY HX Family History: none - PAST HX Past History: none Home Medications: Ambulatory Orders Medication Instructions Recorded Allopurinol 100 mg PO TID 08/23/15 Aspirin [Adult Low Dose Aspirin EC] 81 mg PO QDAY 08/23/15 Atorvastatin Calcium 10 mg PO QDAY 08/23/15 Lisinopril [Prinivil] 20 mg PO QDAY 08/23/15 Metoprolol Tartrate [Lopressor] 25 mg PO BID 08/23/15 Mirtazapine 15 mg PO DAILY 10/23/18 Omeprazole 40 mg PO DAILY 10/23/18 Furosemide [Lasix] 40 mg PO DAILY #30 tablet 10/25/18 Lisinopril 20 mg PO BID #60 tablet 10/25/18 Spironolactone [Aldactone] 25 mg PO DAILY #30 tablet 10/25/18 Allergies/Adverse Reactions: Allergies Allergy/AdvReac Type Severity Reaction Status Date / Time Penicillins Allergy Rash Verified 05/13/19 00:28 - VITAL SIGNS Vital Signs: Vital Signs Temp Pulse Resp BP Pulse Ox 96.7 F L 67 16 194/70 99 05/13/19 00:15 05/13/19 00:15 05/13/19 00:15 05/13/19 00:15 05/13/19 00:15 - REVIEWED ASSESSMENTS Nursing Assessment Reviewed: Yes Vitals Reviewed: Yes ED Results Lab/Radiology - Radiology Radiology Impressions: Obstructive series without chest x-ray Clinical history: Constipation. Findings: Examination abdomen in supine and upright views demonstrates postoperative changes with surgical clips from prior cholecystectomy. Gas and stool are present in the colon. There is no evidence of obstruction or free air. Degenerative changes are seen in the hips and lumbar vertebrae. Impression: 1. Postoperative abdomen. 2. No obstruction or free air. Electronically signed on May 13, 2019 12:40:21 AM CDT by: Ambrocio Murray - Orders Orders: ED Orders Category Date Time Status ABD COMPLETE [RAD] Stat Exams 05/13/19 Completed Abdominal Pain Physical Exam - Physical Exam General Appearance: no acute distress, alert EENT: eye inspection normal, no signs of dehydration NECK: normal inspection RESPIRATORY: no resp distress, chest non-tender, breath sounds normal CVS: reg rate & rhythm, heart sounds normal ABDOMEN: soft, normal bowel sounds, no distension, non-tender BACK: normal inspection SKIN: warm/dry, normal color EXTREMITIES: non-tender, normal range of motion NEURO: oriented X3 Vital Signs: Vital Signs Temp Pulse Resp BP Pulse Ox 96.7 F L 67 16 194/70 99 05/13/19 00:15 05/13/19 00:15 05/13/19 00:15 05/13/19 00:15 05/13/19 00:15 Discharge Clincal Impression: Constipation Qualifiers: Constipation type: unspecified constipation type Qualified Code(s): K59.00 - Constipation, unspecified Referrals: Baljit Andersen MD [Primary Care Provider] - 2 Days Comments: 1. 1/2 bottle mag citrate now and if no results 1/2 in 2 hours 2. INCREASE your fluid and fiber intake 3. Follow up with PCP in 2-4 days 4. Return to ER for any increased concerns Condition: Stable Disposition: 01 HOME, SELF-CARE Decision to Admit: NO Date of Decison to Admit: 05/13/19 Decision Time: 00:45
--- NOTE | 2019-05-13 00:43 | Diagnostic Imaging Report ---
PATIENT MR#: [id number] PATIENT PATIENT NAME: ARTURO CRAIG DATE OF : 1940 REFERRING PHYSICIAN: Lani Chavez EXAM DATE: 05/13/2019 ACCESSION NUMBER: [id number] EXAM DESCRIPTION: ABD COMPLETE Obstructive series without chest x-ray Clinical history: Constipation. Findings: Examination abdomen in supine and upright views demonstrates postoperative changes with tapia rgical clips from prior cholecystectomy. Gas and stool are present in the colon. There is no evidence of obstruction or free air. Degenerative changes are seen in the hips and lumbar vertebrae. Impression: 1. Postoperative abdomen. 2. No obstruction or free air. Read by: Dr. Ambrocio Murray Transcribed by: Transcribed Date: Electronically signed by: Dr. Ambrocio Murray Date signed: 05/13/2019 12:42:37 AM
[2019-05-13 00:56] VITALS: BP 182/74
== END 2019-05-13 00:52 | disposition home or self-care (01) ==
LOC: ED 00:13
DX: K59.00 Constipation, unspecified (principal); G89.18 Other acute postprocedural pain; R10.9 Unspecified abdominal pain
CPT/HCPCS: 74019; 99282